=== PATIENT | male | born 1980 | race Two or more races ===

== ENCOUNTER 2020-04-16 17:46 | Emergency (ER) | payer OTHER ==
[~2020-04-16] VITALS: Ht 177.8 cm; Wt 86.2 kg
[2020-04-16 18:01] VITALS: BP 121/81
--- NOTE | 2020-04-16 18:26 | NUR ---
COVID SWAB DONE AND SENT TO LAB
--- NOTE | 2020-04-16 18:27 | NUR ---
Patient discharged to home in stable condition. Written and verbal after care instructions given. Patient verbalizes understanding of instruction. Pt ambulatory with a steady gait
== END 2020-04-16 18:29 | disposition home or self-care (01) ==
LOC: ER 17:50
DX: U07.1 COVID-19 (principal); R50.9 Fever, unspecified; M79.10 Myalgia, unspecified site
CPT/HCPCS: 99283; C9803; U0003